=== PATIENT | male | born 2005 | race Two or more races ===

== ENCOUNTER 2024-08-17 10:31 | Emergency (ER) | payer BC ==
[~2024-08-17] VITALS: Ht 170.2 cm; Wt 52.3 kg
[2024-08-17 10:37] VITALS: BP 130/84; PULSE 74; RESP 16; TEMP 97.8; O2SAT 99
--- NOTE | 2024-08-17 11:00 | Physician Documentation ---
History of Present Illness ~ Chief Complaint: STD Stated Complaint: STD EXPOSURE Time Seen by MD: 10:54 HPI This is a pleasant 19-year-old gentleman who presents for STD testing. His partner tested positive for chlamydia, he has been exposed. He has no symptoms whatsoever. No prior history of STDs. He is completely asymptomatic otherwise. No concern for tobacco, alcohol or illicit substances use Medication Reconciliation Allergies: Coded Allergies: No Known Allergies (Unverified , 08/17/24) Review of Systems ROS 10 point review of systems was performed and unless noted above in HPI is negative for acute process/complaint. Physical Exam Vital Signs: Temperature: 97.8, Heart Rate: 74, Respiratory Rate: 16, BP: 130/84, Pulse Oximetry: 99, Weight: 52.270 Physical Exam Physical examination: GENERAL: Awake, alert, oriented, GCS 15, no apparent distress, non-toxic appearing, answers questions, follows commands appropriately. HEENT: Atraumatic, normocephalic, pupils equal, extraocular muscles intact Active gross movements, sclerae anicteric, mucus membranes moist, no stridor. NECK: Midline, no JVD CARDIOVASCULAR: Good skin perfusion without evidence of pallor, mottling. PULMONARY: Nonlabored, symmetric chest rise, no audible wheezing, no accessory muscle use, no respiratory distress, speaking in full sentences. GASTROINTESTINAL: Not distended. NEUROLOGIC: Lucid with normal mental status. Normal facial symmetry. Moves all extremities symmetrically and with purpose. No truncal ataxia. Speech is fluid without evidence of dysarthria or aphasia, no focal deficits appreciated. EXTREMITIES: Acute deformities Skin: warm, dry PSYCHIATRIC: Normal affect, normal insight, normal concentration. Focused exam: [] Progress Results/Orders Results/Orders Vital Signs 08/17/24 10:37 Temp 97.8 Pulse 74 Resp 16 B/P (MAP) 130/84 Pulse Ox 99 Medical Decision Making Findings Facility Status: ED [facility], [facility] process The plan was discussed with the patient, who demonstrates clear understanding of the plan and is in agreement with the plan unless otherwise noted in the chart. All questions have been answered, all concerns were addressed unless otherwise documented. I was available throughout their ED stay for frequent reassessment and questions. Differential Diagnoses (considered and possible or likely): [STD exposure, chlamydia, gonorrhea, less likely syphilis, less likely HAV] ??Differential Diagnoses (considered and unlikely, not requiring evaluation currently): [See above] MDM Data Please see HPI for the following: Independent Historians and external Records Review. Historian: [Patient] Independent Historians: ?[None] Medication Management: [Reviewed medication list] Social History and determinants: [Reviewed] Please see the body of the note for the following: Any independent interpretations of ECG, imaging studies. All vitals signs/haemodynamics, ordered tests were independently reviewed and interpreted by myself. Nursing triage complaint and vitals reviewed, additional nursing notes were reviewed as available and I agree unless otherwise noted or documented in contradiction in the chart Vital Signs: Independently reviewed Labs: Independently interpreted Imaging: Independently interpreted Old Medical Records: Independently reviewed, see HPI for relevant summary and information Pulse Oximetry: [100%] interpreted as [normal on room air] by me Additionally notably showing: [Hemodynamically stable] Tests considered but not ordered include: [Hematologic workup and imaging has been considered but does not appear to be necessary given clinical nature of diagnosis] Social Determinants of Health Impact: Patient was evaluated in [facility] [place] to healthcare due to below par ratio of patient to medical providers. [] Comorbid Conditions Impacting Present Evaluation and Care/Treatment: [STD exposure] Management Discussions with other Healthcare Providers: [None] Treatment and Disposition Medication Management (Given or considered): [Azithromycin for chlamydia treatment]. See EMR for details Consideration for Hospitalization/Escalation/Deescalation of Care: Admission for observation has been considered, [however the patient is able to tolerate p.o., their symptoms are controlled, they are able to rely on oral medications, and their chief complaint/diagnosis can be managed on outpatient basis.] ?ED Course:?[Based on shared decision-making, we will treat before receiving the results.] ?Shared decision making: Patient is hemodynamically stable for discharge home with follow with their primary care provider. [ ] Specific and cautious return precautions provided and discussed with full understanding. Any incidental findings were also discussed and follow up recommendations given. [] All questions answered. Patient/family were able to verbalize back return precautions. Patient/family agree to plan. Copies of imaging and laboratory studies were provided. Code status:?FULL Please see the full Electronic Medical Record for full details of nursing documentation, medications list, other records of complete past medical history and conditions, vital signs, laboratory studies, and any radiologic study interpretations by radiologists. Portions of this note were completed using [employer] ([employer]) dictation software and as a result there may exist minor errors in spelling. I have reviewed elements of past family and social history and agree as included in note. Departure Disposition: HOME / SELF CARE / HOMELESS Impression: Primary Impression: Chlamydial infection Condition: Improved Discharge Instructions: Chlamydia, Male Referrals: NO PRIMARY CARE PROVIDER (PCP) Education Educated: Patient Educated regarding: diagnosis, treatment, prognosis, need for follow up Signature Scribe Signature: No scribe Attestation: This note accurately reflects clinical decisions, work performed by myself, DO DARÍO Egan NICHOLAS M DO August 17, 2024 11:00
[2024-08-17] MEDS: azithromycin 250mg tablet PO ONE (11:29)
[2024-08-19 06:16] LABS: CHLAMYDIA TRACHOMATIS, NAA Positive (Negative)
== END 2024-08-17 11:32 | disposition home or self-care (01) ==
LOC: ER 10:32
DX: A74.9 Chlamydial infection, unspecified (principal)
CPT/HCPCS: 36415; 87491; 99283